=== PATIENT | female | born 1960 | race Caucasian/White ===

== ENCOUNTER → 2020-01-21 09:49 | Outpatient (CLI) | payer OTHER, SELFPAY ==
--- NOTE | ~2020-01-21 | CT_ITS ---
EXAMINATION: CT abdomen pelvis wo con DATE: 01/21/2020 10:13 INDICATION: Adult polycystic kidney disease. Calculus of kidney. TECHNIQUE: Computed tomography (CT) of the abdomen and pelvis was performed without intravenous contr ast. Automated exposure control and iterative reconstruction technique were employed. The dose-length product was 622.57 mGy-cm. COMPARISON: CT abdomen and pelvis 05/09/2015 FINDINGS: The visualized portions of the lung bases demonstrate mild atelectasis. No pleural effusion . The heart size is normal. No pericardial effusion. There are numerous cysts in the liver measuring up to 4.8 cm. There are changes of cholecystectomy. The spleen is normal. There is a 1.7 cm cyst in t he head of the pancreas. The adrenal glands are normal. Right kidney measures 13.1 x 5.9 x 5.5 cm. Le ft kidney measures 11.0 x 5.4 x 6.2 cm. There are numerous simple cysts in the kidneys measuring up t o 3.2 cm on the right. There are numerous hemorrhagic cysts in the kidneys measuring up to 1.5 cm on the left. There are multiple parenchymal calcifications in the kidneys. There are stones in the kidne ys measuring up to 5 mm on the left. There is diverticulosis of the colon without evidence of diverti culitis. The appendix is not visualized. There are no pathologically enlarged lymph nodes. There is n o free intraperitoneal fluid. There is moderate thoracic and lumbar spondylosis. IMPRESSION: 1. Polycystic kidney disease. 2. Nonobstructing stones in the kidneys measuring up to 5 mm on the left. Reviewed, dictated and finalized at location A.
== END ==
PROVIDERS: Visit Provider Internal Medicine Nephrology
DX: Q61.2 Polycystic kidney, adult type (principal); N20.0 Calculus of kidney
CPT/HCPCS: 74176

== ENCOUNTER 2020-06-16 16:31 | Outpatient (CLI) | payer OTHER, SELFPAY ==
--- NOTE | ~2020-06-16 | CT_ITS ---
EXAMINATION: CT abdomen pelvis wo con DATE: 06/16/2020 16:53 INDICATION: Bilateral flank pain TECHNIQUE: Computed tomography (CT) of the abdomen and pelvis was performed without intravenous contr ast. Automated exposure control and iterative reconstruction technique were employed. Exam dose: 488 .87 mGy-cm total exam DLP. COMPARISON: 01/21/[address] abdomen pelvis FINDINGS: The lung bases are clear of infiltrate or consolidation. Normal heart size. There is some c oronary artery calcification. No pericardial or pleural effusion. Innumerable cysts of variable size scattered throughout the liver, measuring up to approximately 4 cm maximal dimension. Status post cholecystectomy. No bile duct or pancreatic duct dilatation. Stable approximately 1.3 cm pancreatic head cyst. No other pancreatic mass lesion or calcification. N ormal splenic size. Extensive bilateral cysts of the kidneys consistent with history of adult polycystic kidney disease. There are innumerable calcifications scattered throughout both kidneys as well. There is a distal left ureteral calculus of approximately 3.5 mm dimension, with mild to moderate lef t hydroureteronephrosis. No right ureteral calculus or right-sided hydronephrosis. Normal caliber of the abdominal aorta. No intraperitoneal or retroperitoneal or pelvic mass lesion or adenopathy or ascites. The urinary bladder, uterus and adnexal areas are unremarkable. Diverticulosis of the sigmoid and descending colon; no CT evidence of diverticulitis. No evidence of appendicitis. No bowel obstruction, bowel wall thickening, pneumatosis or intraperitoneal free air. Small fat-containing umbilical hernia. Included skeletal structures are unremarkable. IMPRESSION: Approximately 3.5 mm distal left ureteral calculus with mild to moderate proximal hydrou reteronephrosis Numerous hepatic cysts and stable pancreatic head cyst Adult polycystic kidney disease Innumerable bilateral renal calcifications Status post cholecystectomy. Reviewed, dictated and finalized at Location A. Reviewed, dictated and finalized at location B. RNATIONAL SALES REPRESENTATIVE IMPRESSION: Approximately 3.5 mm distal left ureteral calculus with mild to mo derate proximal hydroureteronephrosis Numerous hepatic cysts and stable pancreatic head cyst Adult polycystic kidney disease Innumerable bilateral renal calcifications Status post cholecystectomy.
--- NOTE | ~2020-06-16 | XR_ITS ---
XR abdomen/kub 1V DATE: 06/16/2020 17:03 INDICATION: Left-sided pain. Bilateral kidney stones. Chronic low back pain. TECHNIQUE: AP projection, 2 views COMPARISON: 04/17/2016 KUB June 16, 2020 CT abdomen pelvis FINDINGS: An approximately 2-3 mm calcification overlying the lower left pelvic area was not evident on 04/17/2016 and may represent the distal left ureteral calcified calculus noted on the current CT a bdomen pelvis noncontrast examination. Numerous calcifications are noted scattered throughout both kidneys. Surgical clips, right upper quadrant, consistent with cholecystectomy. The psoas shadows are intact. No visceromegaly is evident. There is no evidence of bowel obstruction. IMPRESSION: Faintly calcified approximately 2-3 mm distal left ureteral calculus Extensive bilateral nephrolithiasis Status post cholecystectomy Reviewed, dictated and finalized at Location A. Reviewed, dictated and finalized at location B. N RESOURCES FILE CLERK IMPRESSION: Faintly calcified approximately 2-3 mm distal left ureteral calculu s Extensive bilateral nephrolithiasis Status post cholecystectomy
== END 2020-06-16 16:32 | disposition home or self-care (01) ==
PROVIDERS: PCP Internal Medicine; Visit Provider Urology
DX: N20.2 Calculus of kidney with calculus of ureter (principal); Z90.49 Acquired absence of other specified parts of digestive tract; Q61.2 Polycystic kidney, adult type
CPT/HCPCS: 74018; 74176

== ENCOUNTER → 2020-07-04 02:49 | Outpatient (CLI) | payer OTHER, SELFPAY ==
[2020-07-04 22:47] LABS: SARS-CoV-2 RNA PCR Negative
== END ==
PROVIDERS: PCP Internal Medicine; Visit Provider Urology
DX: Z01.812 Encounter for preprocedural laboratory examination (principal); Z20.822 Contact with and (suspected) exposure to COVID-19
CPT/HCPCS: C9803; U0003; U0005

== ENCOUNTER 2020-07-04 07:53 | Outpatient (CLI) | payer OTHER, SELFPAY ==
--- NOTE | 2020-07-04 08:00 | ECG_ITS ---
Measurements Intervals [place] Rate: 73 P: 0 RI: 150 QRS: -13 QRSD: 94 T: -3 QT: 373 QTc: 411 Interpretive Statements SINUS RHYTHM DELAYED PRECORDIAL R/S TRANSITION NONSPECIFIC T-WAVE ABNORMALITY- ANT/INF LEADS BASELINE ARTIFACT- II, III, AVR, AVL, AVF BORDERLINE ECG Electronically Signed On 07-04-2020 8:13:33 TIMBER ROBBER by Xander Kay D.O.
[2020-07-04 08:43] LABS: Anion Gap 4 mmol/L (8-16); Blood Urea Nitrogen 24 mg/dL (7-17); Calcium 9.9 mg/dL (8.4-10.2); Carbon Dioxide 34 mmol/L (22-30); Chloride 99 mmol/L (98-107); Estimated Glomerular Filt Rate 39; Glucose 122 mg/dL (65-105); Potassium 3.5 mmol/L (3.4-5.0); Sodium 137 mmol/L (137-145)
[2020-07-04 08:45] LABS: INR 0.9
[2020-07-04 08:46] LABS: Partial Thromboplastin Time 27.9 SECONDS (22.3-36.8)
== END 2020-07-04 07:54 | disposition home or self-care (01) ==
PROVIDERS: Anesthesiology; PCP Internal Medicine; Visit Provider Urology
DX: Q61.3 Polycystic kidney, unspecified (principal); I10 Essential (primary) hypertension; N20.9 Urinary calculus, unspecified; Z01.818 Encounter for other preprocedural examination; R94.31 Abnormal electrocardiogram [ECG] [EKG]
CPT/HCPCS: 36415; 80048; 85610; 85730; 93005

== ENCOUNTER 2020-07-07 01:44 | Day surgery (SDC) | payer OTHER, SELFPAY ==
[2020-07-03 15:09] VITALS: BMI 29.2
[2020-07-07] VITALS (10 sets, daily range): BP systolic 100–123; BP diastolic 60–84; PULSE 58–79; RESP 11–20; TEMP 35.9–36.4; O2SAT 100
--- NOTE | ~2020-07-07 | XR_ITS ---
EXAMINATION: XR abdomen/kub 1V EXAM DATE: 07/07/2020 10:57 INDICATION: For lithotripsy. TECHNIQUE: Frontal projection of the upper abdomen, frontal projection lower abdomen/pelvis for inter pretation. Comparison is made to prior examination from 06/16/2020. FINDINGS: Numerous renal cortical calcifications are noted. Left pelvic calcification again noted, c ould be the distal ureteral stone seen on prior study. There are cholecystectomy clips. Nonobstructiv e bowel gas pattern. IMPRESSION: 1. Persistent left pelvic calcification could be distal ureteral stone, indicated. 2. Numerous renal calcifications, most were cortical on prior CT Reviewed, dictated and finalized at location B. G ADDRESS CLERK IMPRESSION: 1. Persistent left pelvic calcification could be distal ureteral stone, indica dayana. 2. Numerous renal calcifications, most were cortical on prior CT
--- NOTE | 2020-07-07 08:19 | WPDHPUPDATE1 ---
History and Physical Update Update Date/Time: 07/07/20 08:19 History and Physical has been reviewed, including an updated exam of the patient. There are NO changes in the patient's condition. Risks, benefits, and alternatives have been discussed and questions answered. Patient agrees to proceed with procedure.
--- NOTE | 2020-07-07 11:18 | WPDANESEPPF ---
Anes - Initial Pre Proc Eval Procedure: Operation Date: 07/07/20 13:00 Proposed Procedures p Left Renal Extracorporeal Shock Wave Lithotripsy - Rodolfo Carlos MD Date/Time: 07/07/20 11:18 Surgeon: Rodolfo Carlos MD Pre Op Diagnosis: Left Renal Stone Patient Data Age: 60 Gender: F Height: 5 ft 3 in Weight: 75 kg Allergies Allergy/AdvReac Type Severity Reaction Status Date / Time No Known Allergies Allergy Unknown Verified 07/03/20 14:42 Home Medications Medication Instructions Recorded Confirmed Type amiloride-hydrochlorothiazide 0.5 tablet PO DAILY 07/03/20 07/03/20 History ascorbic acid (vitamin C) [Vitamin 500 mg PO DAILY 07/03/20 07/03/20 History C] calcium 500 mg PO DAILY 07/03/20 07/03/20 History cholecalciferol (vitamin D3) 100 mcg PO DAILY 07/03/20 07/03/20 History [Vitamin D3] levothyroxine [Euthyrox] 88 mcg PO DAILY 07/03/20 07/03/20 History Patient hx anesthesia problems: none Family hx anesthesia problems: none [facility] Past Medical History Medical History Hypertension Hypothyroid Polycystic kidney disease Social History Social History Smoking status: Former smoker Tobacco type: cigarettes Smoking end date: 04/28/99 Additional smoking assessment comments: cigarettes x 10 yeaars 1/2ppd Living arrangements: with family Spiritual care concerns: No Anes - Eval Final PreProcedure Day of Procedure 07/07/20 11:18 Patient weight: overweight Heart: regular rate and rhythm Lungs: clear to auscultation Airway: Mallampati scale class II Neurological: alert and oriented Last oral intake: >/= 8 hours ASA classification: III Emergent: no Anesthetic plan: proceed Anesthesia type and monitoring: general LMA and standard monitoring Informed Consent: The patient's anesthetic plan and its attendant risks and benefits were discussed with the patient/family/POA. Questions were solicited and answers provided to the satisfaction of the patient/family/POA.
[2020-07-07] MEDS: LACTATED RINGERS 1,000 ML 30 ML IV CONT (11:26)
[2020-07-07] MEDS: ceFAZolin 2 GM/D5W 50 ML 2 GM/50 ML BAG IVPB (12:31)
--- NOTE | 2020-07-07 12:56 | PM.PROC ---
Procedure Note - Detailed Date of procedure: 07/07/20 Pre-op diagnosis: Left Renal Stone Post-op diagnosis: same Procedure performed: Left ESWL Description of procedure: The patient was brought to the operative suite where she was placed in the supine position on the Dornier lithotripsy table. The focal point of the lithotripter was placed at a 5-6mm left renal calculus. A total of 2500 shocks were delivered at a power setting of 4. There appeared to be good fragmentation of the stone. The patient tolerated the procedure well and was taken to the recovery room in good condition. Anesthesia: GLMA Surgeon: Rodolfo Carlos MD Estimated blood loss (mL): 0 Drains: No Packing: No Pathology: none sent Complications: No immediate complications Condition: stable Disposition: PACU
[2020-07-07] MEDS: fentaNYL CITRATE INJ (*CRX) 100 MCG/2 ML VIAL IV PUSH (13:45)
[2020-07-07] MEDS: oxyCODONE HCL (*CRX) 5 MG TAB IR PO (15:16)
--- NOTE | 2020-07-07 17:00 | SUR.PHASEII ---
1540; PT AWAKE AND ALERT. STATES PAIN TO LT FLANK BETTER NOW AND TOLERABLE. READY TO GO HOME.
== END 2020-07-07 16:00 | disposition home or self-care (01) ==
PROVIDERS: PCP Internal Medicine; Visit Provider Urology
PROC: (CPT 50590; principal; 2020-07-07 13:00)
DX: N20.0 Calculus of kidney (principal); I10 Essential (primary) hypertension; E03.9 Hypothyroidism, unspecified; E28.2 Polycystic ovarian syndrome; Z87.891 Personal history of nicotine dependence
CPT/HCPCS: 50590; 36415; 74018; 80048; 85610; 85730; 93005; A9270; C9803; J0690; J1100; J2250; J2405; J2704; J3010; J7120; U0003; U0005

== ENCOUNTER 2020-07-24 10:30 | Outpatient (CLI) | payer OTHER, SELFPAY ==
--- NOTE | ~2020-07-24 | XR_ITS ---
EXAMINATION: XR abdomen/kub 1V EXAM DATE: 07/24/2020 10:49 INDICATION: Left kidney stone follow-up after lithotripsy.. TECHNIQUE: Frontal projection of the upper abdomen, frontal projection lower abdomen/pelvis for inter pretation. Comparison is made to prior examination from 07/07/2020. FINDINGS: There is left-sided pelvic calcification measuring about 3 x 6 mm, shifts in position, is a t the cecal base on [address] scans, likely an appendicolith or stone in the stump of the appendix i f patient has had appendectomy. Small bilateral nephrolithiasis. There are cholecystectomy clips. Non obstructive bowel gas pattern. IMPRESSION: 1. Bilateral nephrolithiasis. 2. Left pelvic calcification probably appendicolith. Reviewed, dictated and finalized at location A.
== END 2020-07-24 10:31 | disposition home or self-care (01) ==
LOC: ANHIMG 10:35
PROVIDERS: PCP Internal Medicine; Visit Provider Urology
DX: N20.0 Calculus of kidney (principal)
CPT/HCPCS: 74018

== ENCOUNTER 2021-04-10 09:12 | Outpatient (CLI) | payer OTHER, SELFPAY ==
--- NOTE | ~2021-04-10 | XR_ITS ---
EXAMINATION: XR abdomen/kub 1V EXAM DATE: 04/10/2021 09:32 INDICATION: Left ureteral stone follow-up. TECHNIQUE: Frontal projection of the upper abdomen, frontal projection lower abdomen/pelvis for inter pretation. Comparison is made to prior examination from 07/24/2020. FINDINGS: There are multiple small bilateral kidney stones up to about 3 mm in size. Nonobstructive bowel gas pattern. There are cholecystectomy clips. There are mild bony degenerative changes. IMPRESSION: Small bilateral nephrolithiasis. Reviewed, dictated and finalized at location B. ORK CONTROLLER
== END 2021-04-10 09:13 | disposition home or self-care (01) ==
LOC: ANHIMG 09:16
PROVIDERS: PCP Internal Medicine; Visit Provider Urology
DX: N20.1 Calculus of ureter (principal)
CPT/HCPCS: 74018

== ENCOUNTER 2022-04-16 08:56 | Outpatient (CLI) | payer OTHER, SELFPAY ==
--- NOTE | ~2022-04-16 | XR_ITS ---
Supine and upright views of the abdomen Clinical history: Bilateral kidney stones COMPARISON: 04/10/2021 Findings: Bowel gas pattern is nonspecific. No evidence for obstruction or free air. Numerous small b ilateral renal calcifications are present. Cholecystectomy clips present. Osseous structures are inta ct. Impression: Numerous small bilateral renal stones, similar to prior exam. Reviewed, dictated and finalized at location . PROCESSING OPERATOR Impression: Numerous small bilateral renal stones, similar to prior exam.
== END 2022-04-16 08:57 | disposition home or self-care (01) ==
PROVIDERS: PCP Internal Medicine; Visit Provider Urology
DX: N20.0 Calculus of kidney (principal)
CPT/HCPCS: 74018

== ENCOUNTER → 2023-01-14 12:18 | Outpatient (CLI) | payer OTHER, SELFPAY ==
--- NOTE | ~2023-01-14 | MM_ITS ---
EXAMINATION: MM screening gladys BI w sydni HISTORY: Screening TECHNIQUE: Craniocaudal and mediolateral oblique 3-D tomosynthesis images were obtained and synthetic 2-D images were generated. CAD analysis was submitted and interpreted. COMPARISON: Comparison to multiple prior studies sequentially, with oldest reviewed study dated 11/22. BREAST PARENCHYMAL COMPOSITION: Breast composed of scattered areas of fibroglandular density FINDINGS: There is no evidence of suspicious mass, calcification, or architectural distortion to sugg est malignancy in either breast. There has been no suspicious interval change. IMPRESSION: 1. No mammographic evidence of malignancy. 2. Recommend routine screening mammography in one year. BI-RADS Category 1: Negative Reviewed, dictated and finalized at location A.
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
== END ==
PROVIDERS: PCP Family Medicine; Visit Provider Nurse Practitioner
DX: Z12.31 Encounter for screening mammogram for malignant neoplasm of breast (principal); Z78.0 Asymptomatic menopausal state; M81.0 Age-related osteoporosis without current pathological fracture; M85.852 Other specified disorders of bone density and structure, left thigh; M85.851 Other specified disorders of bone density and structure, right thigh
CPT/HCPCS: 77063; 77067; 77080

== ENCOUNTER 2023-04-30 09:12 | Outpatient (CLI) | payer OTHER, SELFPAY ==
--- NOTE | ~2023-04-30 | CT_ITS ---
CT of the Abdomen and Pelvis: Indication: Pancreatic cyst Technique: 2.5 mm axial scans were obtained through the abdomen and pelvis following intravenous adm inistration of 100 cc of Omnipaque 350. Dose reduction technique was used on this scan by utilizing a utomated exposure control and iterative reconstruction technique. The dose-length product (DLP) was 3 15.90 mGy-cm. COMPARISON: 06/16/2020 Findings: Scans through the lung bases are unremarkable. Innumerable hepatic and bilateral renal cysts are again present. There are small bilateral nonobstruc ting renal stones, similar to prior exam. Similar cyst at the pancreatic head as compared to prior ex am. The spleen, gallbladder, and adrenal glands are within normal limits. No evidence of aortic ane urysm. No lymphadenopathy. No bowel obstruction or bowel wall thickening. There is no evidence to suggest acute appendicitis. Images through the pelvis were performed. Urinary bladder unremarkable. No pelvic mass seen. No ascit es. Impression: Stable pancreatic head cyst. Polycystic hepatic and renal disease bilaterally, similar to prior exam. Numerous small bilateral nonobstructing renal stones. Reviewed, dictated and finalized at location . EL PLANT OPERATOR Impression: Stable pancreatic head cyst. Polycystic hepatic and renal disease bilaterally, similar to prior exam. Numerous small bilateral nonobstructing renal stones.
[2023-04-30 09:37] LABS: Estimated Glomerular Filt Rate 38
== END 2023-04-30 09:13 | disposition home or self-care (01) ==
PROVIDERS: PCP Family Medicine; Visit Provider Nurse Practitioner
DX: K86.2 Cyst of pancreas (principal); K76.89 Other specified diseases of liver; N20.0 Calculus of kidney
CPT/HCPCS: 74177; Q9967

== ENCOUNTER 2023-10-29 10:53 | Outpatient (CLI) | payer OTHER, SELFPAY ==
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
== END 2023-10-29 10:54 ==
PROVIDERS: PCP Physician Assistant; Visit Provider Student in an Organized Health Care Education/Training Program
DX: R07.81 Pleurodynia (principal); S22.080A Wedge compression fracture of T11-T12 vertebra, initial encounter for closed fracture; X58.XXXA Exposure to other specified factors, initial encounter
CPT/HCPCS: 71100; 72070

== ENCOUNTER 2023-11-04 09:13 | Outpatient (CLI) | payer OTHER, SELFPAY ==
--- NOTE | ~2023-11-04 | US_ITS ---
Corrected Report Correction to Visit # 11/05/2023 [facility] This report was recreated on 11/05/2023. Original report was signed by signed by Lorne Valencia M.D. on 11/04/2023 10:43 CDT. Limited Abdominal Sonogram: Real-time sonographic imaging of the right upper quadrant was performed. Clinical History: Right upper quadrant pain Findings: The liver appears normal with no evidence of solid mass lesion or bile duct dilatation. There is a 2.8 cm lobulated cyst in the liver. Main portal vein demonstrates normal direction of flow. The gallbladder is absent, compatible prior cholecystectomy. The common bile duct measures 5 mm. There is a 1.3 cm cyst versus hypodense mass the pancreatic head region.. Right kidney is echogenic with multiple cysts, measuring 11.3 cm in length. Impression: 1.3 cm cyst at the pancreatic head region, unchanged since 04/30/2023. Hepatic and right renal cysts. Echogenic right kidney is compatible with chronic medical renal disease. Status post cholecystectomy. Reviewed, dictated and finalized at location . MTDD
== END 2023-11-04 09:14 ==
PROVIDERS: PCP Physician Assistant; Visit Provider Student in an Organized Health Care Education/Training Program
DX: R10.11 Right upper quadrant pain (principal); Z90.49 Acquired absence of other specified parts of digestive tract; N28.1 Cyst of kidney, acquired; K76.89 Other specified diseases of liver; K86.2 Cyst of pancreas
CPT/HCPCS: 76705

== ENCOUNTER 2025-01-24 08:25 | Outpatient (CLI) | payer OTHER, SELFPAY ==
--- NOTE | ~2025-01-24 | XR_ITS ---
EXAMINATION: XR abdomen/kub 1V DATE: 01/24/2025 08:40 INDICATION: Polycystic kidney, unspecified TECHNIQUE: A supine view of the abdomen on 2 radiographs was obtained. COMPARISON: 05/13/2024 FINDINGS: Lung bases are clear. Cholecystectomy clips are present. Moderate amount of air and stool in nondilated large bowel. Numerous subcentimeter bilateral renal stones. There are a few less than 1.0 cm calcifications projecting over the pelvis which may represent phleboliths, however, a distal ureteral stone or bladder stone or possible. IMPRESSION: 1. Nonspecific abdomen with a moderate amount of stool. 2. Numerous subcentimeter bilateral renal stones. The findings are similar to the prior study. 3. There are a few less than 1.0 cm calcifications projecting over the pelvis which may represent phleboliths, however, a distal ureteral stone or bladder stone or possible. If symptoms persist or worsen, consider a short-term follow-up study or CT imaging for further assessment. Reviewed, dictated and finalized at location Q. IMPRESSION: 1. Nonspecific abdomen with a moderate amount of stool. 2. Numerous subcentimeter bilateral renal stones. The findings are similar to t he prior study. 3. There are a few less than 1.0 cm calcifications projecting over the pelvis w hich may represent phleboliths, however, a distal ureteral stone or bladder sto ne or possible. If symptoms persist or worsen, consider a short-term follow-up study or CT imag ing for further assessment.
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
== END 2025-01-24 08:26 | disposition home or self-care (01) ==
LOC: MICIMG 08:27
PROVIDERS: PCP Internal Medicine Nephrology; Visit Provider Student in an Organized Health Care Education/Training Program
DX: M81.0 Age-related osteoporosis without current pathological fracture (principal); M85.89 Other specified disorders of bone density and structure, multiple sites; Z78.0 Asymptomatic menopausal state; N20.0 Calculus of kidney; Q61.3 Polycystic kidney, unspecified; N18.31 Chronic kidney disease, stage 3a
CPT/HCPCS: 74018; 77080

== ENCOUNTER 2025-01-27 11:57 | Outpatient (CLI) | payer OTHER, SELFPAY ==
--- NOTE | ~2025-01-27 | US_ITS ---
Examination: Ultrasound of the retroperitoneum including kidneys and bladder. Clinical History: Q61.3 - Polycystic kidney, unspecified . Comparison: CT abdomen and pelvis 04/30/2023. Findings: Right kidney: 13 cm. Normal echogenicity. No collecting system dilatation. No shadowing calculi. Multiple cysts Left kidney: 13 cm. Normal echogenicity. No collecting system dilatation. No shadowing calculi. Multiple cysts Urinary bladder: No wall thickening or focal abnormality. IMPRESSION: 1. No acute abnormality identified. 2. Polycystic kidneys Reviewed, dictated and finalized at location R.
== END 2025-01-27 11:58 | disposition home or self-care (01) ==
LOC: MICIMG 11:57
PROVIDERS: PCP Internal Medicine Nephrology; Visit Provider Internal Medicine Nephrology
DX: Q61.3 Polycystic kidney, unspecified (principal); N18.31 Chronic kidney disease, stage 3a; N20.0 Calculus of kidney
CPT/HCPCS: 76770

== ENCOUNTER 2025-02-07 10:20 | Outpatient (CLI) | payer OTHER, SELFPAY ==
--- NOTE | ~2025-02-07 | CT_ITS ---
EXAMINATION: CT abdomen pelvis wo con DATE: 02/07/2025 10:34 INDICATION: Bilateral kidney stones. TECHNIQUE: Computed tomography (CT) of the abdomen and pelvis was performed without intravenous contrast. Automated exposure control and iterative reconstruction technique were employed. The dose-length product was 324.15 mGy-cm. COMPARISON: CT abdomen and pelvis 04/30/2023 FINDINGS: The visualized portions of the lung bases demonstrate mild atelectasis. No pleural effusion. The heart size is normal. No pericardial effusion. There are numerous cysts in the liver measuring up to 2.8 cm. There are changes of cholecystectomy. The spleen is normal. There is a 15 mm cyst in the pancreas. The adrenal glands are normal. There are innumerable cysts in each kidney. There are multiple parenchymal calcifications in each kidney. There are multiple stones in each kidney measuring up to 5 mm on the right. Right kidney measures 12.7 x 6.1 x 6.3 cm. Left kidney measures 11.3 x 5.7 x 5.5 cm. There is diverticulosis of the colon without evidence of diverticulitis. There are no dilated loops of bowel. There are no pathologically enlarged lymph nodes. There is no free intraperitoneal fluid. There is a chronic burst fracture of T12. There is severe lower lumbar spondylosis. IMPRESSION: 1. Polycystic kidney disease. 2. Bilateral nonobstructing kidney stones. Reviewed, dictated and finalized at location E.
== END 2025-02-07 10:21 | disposition home or self-care (01) ==
LOC: MICIMG 10:20
PROVIDERS: PCP Internal Medicine Nephrology; Visit Provider Internal Medicine Nephrology
DX: N20.0 Calculus of kidney (principal); Q61.3 Polycystic kidney, unspecified
CPT/HCPCS: 74176